=== PATIENT | male | born 1970 | race Hispanic/Latino ===

== ENCOUNTER 2017-03-14 08:29 | Inpatient (IN) | payer MEDICAID ==
[2017-03-14 08:37] VITALS: BMI 25.5
[2017-03-14 09:15] LABS: BASO % 0.5 % (0.0-2.0); EOS # 0.1 K/uL (0.0-0.7); HEMATOCRIT 44.7 % (35.0-51.0); LYMPH # 1.6 K/uL (1.0-4.3); LYMPH % 24.1 % (20.0-40.0); MEAN CELL VOLUME 89.5 fL (80.0-94.0); MEAN CORPUSCULAR HEMOGLOBIN 30.5 pg (27.0-31.0); MEAN CORPUSCULAR HGB CONC 34.1 g/dL (33.0-37.0); MEAN PLATELET VOLUME 7.8 fL (7.2-11.7); MONO # 0.6 K/uL (0.0-0.8); MONO % 8.9 % (0.0-10.0); RED CELL DISTRIBUTION WIDTH 13.7 % (11.5-14.5); WHITE BLOOD COUNT 6.6 K/uL (4.8-10.8)
[2017-03-14 09:22] LABS: CHLORIDE 98 mmol/L (98-107); POTASSIUM 3.7 mmol/L (3.6-5.2); SODIUM 141 mmol/L (132-148)
[2017-03-14 09:24] LABS: AST/SGOT 132 U/L (17-59); BILIRUBIN,TOTAL 0.7 mg/dL (0.2-1.3); CARBON DIOXIDE 27 mmol/L (22-30); GFR AFRICAN-AMERICAN > 60
[2017-03-14] MEDS ORDERED: Tmp-Smz 800 mg-160 mg DS Tab PO STA (09:24)
[2017-03-14 09:25] LABS: ALB/GLOB RATIO 1.4 (1.0-2.1); ALKALINE PHOSPHATASE 85 U/L (38-126); ALT/SGPT 69 U/L (21-72); BLOOD UREA NITROGEN 14 mg/dL (9-20); CALCIUM 8.8 mg/dl (8.6-10.4); GLUCOSE,RANDOM 128 mg/dL (75-110); TOTAL PROTEIN 7.5 g/dL (6.3-8.3)
[2017-03-14 09:26] LABS: ALCOHOL SERUM 100 mg/dl (0-10)
[2017-03-14] MEDS ORDERED: Tmp-Smz 800 mg-160 mg DS Tab ONE (10:06)
[2017-03-14 10:17] LABS: RBC URINE 2 /hpf (0-3); URINE BACTERIA OCC (<OCC); URINE BILIRUBIN NEGATIVE (NEGATIVE); URINE BLOOD NEGATIVE (NEGATIVE); URINE COLOR Yellow (YELLOW); URINE GLUCOSE (UA) NORMAL (Normal); URINE KETONE TRACE mg/dL (NEGATIVE); URINE LEUKOCYTE ESTERASE 1+ Leu/uL (Negative); URINE PROTEIN NEGATIVE (NEGATIVE); URINE UROBILINOGEN NORMAL mg/dL (0.2-1.0); WBC URINE 32 /hpf (0-5)
--- NOTE | 2017-03-14 10:37 | C.PDOC ---
History Of Present Illness Patient presents to ED c/o feeling depressed and having suicidal thoughts without specific plan. Patient also c/o right foot pain and swelling, has had previous infected wound/abscess in the area. He states he developed a wound there approx 4-5 days ago from his shoe rubbing the area, and it has become swollen and painful. He denies other physical complaints. Time Seen by Provider: 03/14/17 08:40 Chief Complaint (Nursing): Psychiatric Evaluation History Per: Patient History/Exam Limitations: no limitations Onset/Duration Of Symptoms: Persistent Current Symptoms Are (Timing): Still Present Modifying Factor(s): Alcohol Severity: Moderate Past Medical History Reviewed: Historical Data, Nursing Documentation, Vital Signs Vital Signs: Last Vital Signs Temp 97.1 F L 03/17/17 07:30 Pulse 76 03/17/17 07:30 Resp 16 03/17/17 07:30 BP 122/77 03/17/17 07:30 Pulse Ox 100 03/14/17 17:14 - Medical History PMH: Back Problems (pinched nerve), Depression - [facility] Procedures INDIVID PSYCHOTHERAP NEC (01/03/13) OTHER GROUP THERAPY (01/03/13) TETANUS TOXOID ADMINIST (08/11/14) VACCINATION NEC (08/11/14) Family History: States: No Known Family Hx - Social History Hx Tobacco Use: Yes Hx Alcohol Use: Yes Hx Substance Use: Yes (snorts cocaine) - Immunization History Hx Tetanus Toxoid Vaccination: No Hx Influenza Vaccination: Yes Hx Pneumococcal Vaccination: No Review Of Systems Except As Marked, All Systems Reviewed And Found Negative. Constitutional: Negative for: Fever, Chills Cardiovascular: Negative for: Chest Pain Respiratory: Negative for: Shortness of Breath Gastrointestinal: Negative for: Nausea, Vomiting, Abdominal Pain, Diarrhea Musculoskeletal: Positive for: Other (right foot pain/swelling ) Psych: Positive for: Depression, Suicidal ideation Physical Exam - Physical Exam Appears: Well, Non-toxic, No Acute Distress, Other (flat affect) Skin: Other (see extremity exam) Head: Normacephalic Eye(s): bilateral: Normal Inspection Oral Mucosa: Moist Cardiovascular: Rhythm Regular Respiratory: Normal Breath Sounds, No Rales, No Rhonchi, No Wheezing Gastrointestinal/Abdominal: Normal Exam, Bowel Sounds, Soft, No Tenderness Extremity: No Calf Tenderness, Capillary Refill (< 2 sec all digits ), Other ( right foot, between first and second digits (+) for pustule with mild surrounding erythema) Pulses: Left Dorsalis Pedis: Normal, Right Dorsalis Pedis: Normal Neurological/Psych: Oriented x3 ED Course And Treatment - Laboratory Results Result Diagrams: 03/14/17 09:10 03/14/17 09:10 O2 Sat by Pulse Oximetry: 99 (RA) Pulse Ox Interpretation: Normal Progress Note: Blood work, UA, UDS ordered and reviewed. Patient given PO Bactrim and Keflex for infected foot wound. 10:40am- Patient medically cleared. Pending crisis. Recommend PO Bactrim DS and PO Keflex 500mg BID x 7 days. Disposition - Disposition Disposition: HOSPITALIZED Disposition Time: 11:18 Condition: STABLE - Clinical Impression Clinical Impression: Depression, Cellulitis of foot Decision To Admit - Pt Status Changed To: Hospital Disposition Of: Inpatient - Admit Certification Admit to Inpatient:: After my assessment, the patient will require hospitalization for at least two midnights. This is because of the severity of symptoms shown, intensity of services needed, and/or the medical risk in this patient being treated as an outpatient. - InPatient: Physician Admission Certification: I certify that this patient requires 2 or more midnights of care for the following reason:: see notes - . Bed Request Type: Psychiatry Admitting Physician: Fritz Caba Patient Diagnosis: Depression, Cellulitis of foot
--- NOTE | 2017-03-14 12:23 | PCM.BM ---
<Iza Vásquez - Last Filed: 03/14/17 12:20> Treatment Plan Problems - Problems identified on initial assessmt Depression Date Initiated: 03/14/17 Time Initiated: 12:00 Assessment reference: NA Status: Active Substance Abuse Date Initiated: 03/14/17 Time Initiated: 12:00 Assessment reference: NA Status: Active Treatment assets and liabiliti Patient Assests: adapts well, cooperative, ADL independent, physically healthy, negotiates basic needs Patient Liabilities: live alone (Homeless, lives in Nursing Home), financial problems , poor support system, substance abuse (Cocaine, ETOH. BAL 100) - Milieu Protocol Maintain good personal hygiene: daily Encourage regular showers, daily Remind patient to perform daily oral care, other Assist patient to perform ADL's (Self) Conduct patient checks and document Observation sheet: Q15 minutes (Safety) Maintain personal safety: every shift Educate patient to report safety concerns to staff, every shift Monitor environment for contraband/sharps Medication safety: Monitor for expected outcome, potential side effects: every shift, Assess barriers to learning: every shift, Assess readiness for medication education: every shift <Linnea Mora - Last Filed: 03/17/17 10:41> Family Contact Family involvement: Famliy/SO not involved - Goals for Treatment Patient goals for treatment: "I want to go back to my rehab in [place]." Discharge/Continuing Care - Education Needs Education Needs: Patient Medication, Patient Coping Skills, Patient Placement options, Patient Community resources - Discharge Discharge Criteria: Tolerates medication w/o severe side effects, No longer exhibiting s/s of withdrawal, Reduction of target symptoms Discharge to:: Substance Abuse Rehab - Treatment Team Participation Discussed with Family/SO: No Was Patient/Family/SO present at Treatment Team Meeting: Yes <Fritz Caba - Last Filed: 03/17/17 17:26> - Diagnosis (1) Major depressive disorder, recurrent Status: Acute Interventions: 03/17/17 17:21 Assess/adjust medications daily and/or as needed See patient on an individual basis 7x/week to assess status of psychiatric symptoms/depression Discussed risks, benefits, side effects and alternatives of medications. (2) Alcohol use disorder, severe, dependence Status: Acute Interventions: 03/17/17 17:24 Assess 7x/week regarding severity of withdrawal Educate regarding risks, benefits, side effects and alternatives of medications Used motivational interviewing for abstinence Use CBT for relapse prevention Medication management for withdrawal symptoms Encourage medication assisted treatment
--- NOTE | 2017-03-15 16:51 | PCM.PSYCH ---
Initial Psychiatric Evaluation - Initial Psychiatric Evaluation Type of Admission: Voluntary Legal Status: Capacity Chief Complaint (in patient's own words): I'm feeling depressed History of Present Illness and Precipitating Events: Patient is a 47 year old homeless male with psychiatric history of depression, alcohol and cocaine and PMH of DM was presents to ED c/o feeling depressed and having suicidal thoughts without specific plan. Patient stated that he is feeling depressed for last 1 month, with low level of energy, difficulty in sleep, and difficulty in focusing. He stated that he passive suicidal ideation, but no intent or plan. He stated he contracted to hospital for safety. He denied HI, intent or plan. Pt's current stressor are loss of his intermediate, ID, wallet etc. He denied manic symptoms, He denied anxiety symptoms. He denied perceptual disturbances. He denied PTSD symptoms. He denied sexual or physical abuse. Per chart review he c/o right foot pain and swelling, has had previous infected wound/abscess in the past. however, he denied any pain or other symptoms He states he developed a wound there approx 4-5 days ago, and the area has become swollen and painful. He denies other physical complaints. Current Medications: Active Medications Generic Name Dose Route Start Last Admin Trade Name Freq PRN Reason Stop Dose Admin Ciprofloxacin 500 mg 03/14/17 18:00 03/15/17 09:16 Cipro PO 03/19/17 10:00 500 mg BID LEW Administration Folic Acid 1 mg 03/14/17 13:15 03/15/17 09:15 Folic Acid PO 1 mg DAILY LEW Administration Gabapentin 400 mg 03/14/17 14:00 03/15/17 13:32 Neurontin PO 400 mg TID LEW Administration Ibuprofen 400 mg 03/14/17 13:07 Motrin Tab PO Q6 PRN Pain, moderate (4-7) Influenza Virus Vaccine 45 mcg 03/17/17 10:00 Afluria IM 03/17/17 10:01 .ONCE ONE Lorazepam 2 mg 03/14/17 13:15 03/15/17 12:34 Ativan PO 03/19/17 13:14 Not Given Q4 LEW Taper Pneumococcal Polyvalent Vaccine 0.5 ml 03/17/17 10:00 Pneumovax 23 Vaccine IM 03/17/17 10:01 .ONCE ONE Thiamine HCl 100 mg 03/14/17 13:15 09/30/17 09:15 Vitamin B1 Tab PO 100 mg DAILY LEW Administration Trazodone HCl 50 mg 03/14/17 13:03 03/14/17 21:15 Desyrel PO 50 mg HS PRN Administration Insomnia Past Psychiatric History - Past Psychiatric History Previous Treatment History: Inpatient Prior Psychiatric Treatment: He was admitted to [facility] in 2014 History of Abuse: denied History of ETOH/Drug Use: Pt was not able to give his complete history History of Family Illness: denied Pertinent Medical Hx (Current Medical&Sleep Prob, Allergies): Per chart review he c/o right foot pain and swelling, has had previous infected wound/abscess in the past. however, currently he denied any pain or other symptoms He states he developed a wound there approx 4-5 days ago, and the area has become swollen and painful. He denies other physical complaints. Allergies Allergy/AdvReac Type Severity Reaction Status Date / Time shellfish derived Allergy Verified 03/14/17 08:33 No Known Home Med 03/14/17 Review of Systems - Review of Systems Systems not reviewed;Unavailable: Acuity of Condition Review of Systems: Please see HPI Mental Status Examination - Personal Presentation Personal Presentation: Looks stated age - Affect Affect: Constricted - Motor Activity Motor Activity: Calm - Reliability in Providing Information Reliability in Providing Information: Fair - Speech Speech: Organized - Mood Mood: Depressed - Formal Thought Process Formal Thought Process: No Impairment - Hallucinations/Delusions Hallucinations: Other (denied) Delusions: Other (denied) - Obsessions/Compulsions Obsessions: No Compulsions: No - Cognitive Functions Orientation: Person, Place, Situation, Time Sensorium: Alert Attention/Concentration: Attentive Abstract Thinking: [place] Estimate of Intelligence: Average Judgement: Intact, as evidence by: Good judgement, Intact, as evidence by: Insight regarding need for hospitalization Memory: Recent intact, as evidence by: Ability to recall events of the day - Risk Risk: Other (currently denied SI, HI, intent or plan. No access to guns) - Strength & Assets Inventory Strength & Assets Inventory: Interests/hobbies, Spiritual affiliations, Cooperative, Other (wants to live healthy and contracted hospital for safety) - Limitations Limitations: Living alone DSM 5 DX - DSM 5 DSM 5 Diagnosis: Major Depressive d/o Alcohol use disorder, Intoxicated - Recommended/Plan of Treatment Treatment Recommendations and Plan of Treatment: Ativan taper for alcohol detox. Start Zoloft 25 mg po daily for depression, will titrate according to his response Individual and group therapy. Therapy in milieu CBT targets: psychoeducation, coping skills, relaxation techniques, automatic thoughts, recent financial struggles and move Monitor symptoms. Labs result reviewed Cipro for UTI Pt needs stabilization on meds Time spend 30 minutes Projected ELOS: 5-7 days Prognosis: fair with meds Discharge Plan and Discharge Criteria: Pt will be discharged after stabilization on meds
--- NOTE | 2017-03-16 17:06 | PCM.PYCHPN ---
Psychiatric Progress Note - Psychiatric Progress Note Patient seen today, length of contact: 15 minutes Patient Chief Complaint: I'm feeling better than yesterday Problems Identified/Issues Discussed: Patient was seen. Chart was reviewed important content noted. Nurse input received that his alcohol withdrawal symptoms are getting better. Patient stated that he is feeling better than yesterday. He has no new complaints. No events overnight. Patient slept well and is eating well. Patient denies any depressive symptoms. Denies suicidal or homicidal ideations. Patient does not report hallucinations. No delusions elicited. No paranoia elicited. Patient has remained in good clinical and behavioral control. Patient is finding medications beneficial and would like to continue with treatment plan. Patient appreciated that treatment team is trying to help. DSM 5 Symptoms Update: MDD, Recurrent, mild Alcohol use d/o, Intoxication without complication Medication Change: Yes (Decrease Ativan dosage (ativan taper for alcohol withdrawal)) Medical Record Reviewed: Yes Mental Status Examination - Cognitive Function Orientation: Person, Place, Situation, Time Memory: Intact Attention: WNL Concentration: WNL Association: WNL Fund of Knowledge: WNL - Mood Mood: Other (Pt stated that he is feeling better than yesterday) - Affect Affect: Constricted - Speech Speech: Soft - Formal Thought Process Formal Thought Process: No Impairment Psychotic Thoughts and Behaviors: denied - Suicidal Ideation Suicidal Ideation: No - Homicidal Ideation Homicidal Ideation: No Goal/Treatment Plan - Goal/Treatment Plan Need for Continued Stay: Discharge may exacerbated symptoms Progress Toward Problem(s) and Goals/Treatment Plan: Ativan taper for alcohol detox. Decrease Ativan dose Continue Zoloft 25 mg po daily for depression, will titrate according to his response Individual and group therapy. Therapy in milieu CBT targets: psychoeducation, coping skills, relaxation techniques, automatic thoughts, recent financial struggles and move Monitor symptoms. Cipro for UTI Pt needs stabilization on meds Time spend 15 minutes Estimated Date of D/C: 03/20/17 - Smoking Cessation Smoking Cessation Initiated: Yes
[2017-03-17 07:46] VITALS: O2SAT 99
[2017-03-17] MEDS ORDERED: Pneumococcal 23-Valent Vaccine IM ONE (10:00)
[2017-03-17] MEDS ORDERED: Influenza Virus Vaccine (Afluria Inactive dont use ) IM ONE (10:00)
[2017-03-17] MEDS ORDERED: Influenza Vaccine 60 mcg/0.5 mL SYR (4YR UP) IM ONE (11:11)
--- NOTE | 2017-03-17 17:29 | PCM.PYCHPN ---
Psychiatric Progress Note - Psychiatric Progress Note Patient seen today, length of contact: 15 minutes Patient Chief Complaint: I'm feeling much better with the treatment Problems Identified/Issues Discussed: Patient seen. Chart reviewed. Case discussed with the staff. Issues related to illness and treatment were discussed with the patient. Reported compliant with treatment with no adverse affects. Tolerating treatment very well. Reported feeling much better with only mild withdrawal symptoms. Wants to go to a rehabilitation in [facility]. At the time of evaluation, patient was awake alert oriented 3, had no delusions , no auditory or visual hallucinations, no suicidal ideations or homicidal ideations. Medical Problems: None reported Diagnostic Results: Reviewed DSM 5 Symptoms Update: Improving with treatment Medication Change: No Medical Record Reviewed: Yes Mental Status Examination - Cognitive Function Orientation: Person, Place, Situation, Time Memory: Intact Attention: WNL Concentration: WNL Association: WN Fund of Knowledge: [facility] Decription of patient's judgement and insights: Fair - Mood Mood: Depressed (Much less than before) - Affect Affect: Depressed - Speech Speech: Soft - Formal Thought Process Formal Thought Process: No Impairment Psychotic Thoughts and Behaviors: None - Suicidal Ideation Suicidal Ideation: No - Homicidal Ideation Homicidal Ideation: No Goal/Treatment Plan - Goal/Treatment Plan Need for Continued Stay: Remain at risks for inpatient hospitalization, Discharge may exacerbated symptoms, Severe functional impairment Progress Toward Problem(s) and Goals/Treatment Plan: Patient education Supportive therapy Patient needs more time for stabilization has patient still has withdrawal symptoms and depression but less than before Continue treatment as before. Estimated Date of D/C: 03/21/17 - Smoking Cessation Smoking Cessation Initiated: Yes
--- NOTE | 2017-03-18 18:25 | PCM.PYCHPN ---
Psychiatric Progress Note - Psychiatric Progress Note Patient seen today, length of contact: 15 minutes Patient Chief Complaint: I'm feeling much better with the treatment Problems Identified/Issues Discussed: Patient seen. Chart reviewed. Case discussed with the staff. Issues related to illness and treatment were discussed with the patient. Reported compliant with treatment with no adverse affects. Tolerating treatment very well. Reported feeling much better with only mild withdrawal symptoms. Wants to go to a rehabilitation in [facility]. At the time of evaluation, patient was awake alert oriented 3, had no delusions , no auditory or visual hallucinations, no suicidal ideations or homicidal ideations. Medical Problems: None reported Diagnostic Results: Reviewed DSM 5 Symptoms Update: Improving with treatment Medication Change: No Medical Record Reviewed: Yes Mental Status Examination - Cognitive Function Orientation: Person, Place, Situation, Time Memory: Intact Attention: WNL Concentration: WNL Association: WN Fund of Knowledge: [facility] Decription of patient's judgement and insights: Fair - Mood Mood: Depressed (Much less than before) - Affect Affect: Other (Appropriate) - Speech Speech: Appropriate - Formal Thought Process Formal Thought Process: No Impairment Psychotic Thoughts and Behaviors: None - Suicidal Ideation Suicidal Ideation: No - Homicidal Ideation Homicidal Ideation: No Goal/Treatment Plan - Goal/Treatment Plan Need for Continued Stay: Remain at risks for inpatient hospitalization, Discharge may exacerbated symptoms, Severe functional impairment Progress Toward Problem(s) and Goals/Treatment Plan: Patient education Supportive therapy Patient needs more time for stabilization as patient still has some withdrawal symptoms and depression but less than before Continue treatment as before. Estimated Date of D/C: 03/21/17 - Smoking Cessation Smoking Cessation Initiated: Yes
[2017-03-19 11:37] VITALS: RESP 20
--- NOTE | 2017-03-19 15:33 | PCM.PYCHPN ---
Psychiatric Progress Note - Psychiatric Progress Note Patient seen today, length of contact: 15 minutes Patient Chief Complaint: I'm feeling much better with the treatment Problems Identified/Issues Discussed: Patient seen. Chart reviewed. Case discussed with the staff. Issues related to illness and treatment were discussed with the patient. Reported compliant with treatment with no adverse affects. Tolerating treatment very well. Reported feeling much better. Wants to go to a rehabilitation in [facility]. At the time of evaluation, patient was awake alert oriented 3, had no delusions , no auditory or visual hallucinations, no suicidal ideations or homicidal ideations. Medical Problems: None reported Diagnostic Results: Reviewed DSM 5 Symptoms Update: Improving with treatment Medication Change: No Medical Record Reviewed: Yes Mental Status Examination - Cognitive Function Orientation: Person, Place, Situation, Time Memory: Intact Attention: WNL Concentration: WNL Association: WN Fund of Knowledge: [facility] Decription of patient's judgement and insights: Fair - Mood Mood: Depressed (Much less than before) - Affect Affect: Other (Appropriate) - Speech Speech: Appropriate - Formal Thought Process Formal Thought Process: No Impairment Psychotic Thoughts and Behaviors: None - Suicidal Ideation Suicidal Ideation: No - Homicidal Ideation Homicidal Ideation: No Goal/Treatment Plan - Goal/Treatment Plan Need for Continued Stay: Remain at risks for inpatient hospitalization, Discharge may exacerbated symptoms, Severe functional impairment Progress Toward Problem(s) and Goals/Treatment Plan: Patient education Supportive therapy Continue treatment as before. Estimated Date of D/C: 03/21/17 - Smoking Cessation Smoking Cessation Initiated: Yes
[2017-03-20 09:36] VITALS: BP 124/78; PULSE 80; TEMP 98.2
--- NOTE | 2017-03-20 14:50 | PCM.PYCHDC ---
Mental Status Examination - Mental Status Examination Orientation: Person, Place, Situation, Time Memory: Intact Mood: Neutral Affect: Other (Appropriate) Speech: Appropriate Attention: WNL Concentration: WNL Association: WNL Fund of Knowledge: WNL Formal Thought Process: No Impairment Description of patient's judgement and insight: Fair Psychotic Thoughts and Behaviors: None Suicidal Ideation: No Current Homicidal Ideation?: No Discharge Summary - Discharge Note Reason for Hospitalization: Major depressive disorder Alcohol use disorder severe Alcohol withdrawal Laboratory Data: Reviewed Consultations:: List each consultation separately and include: 1. Reason for request. 2. Findings. 3. Follow-up Summary of Hospital Course include:: 1. Description of specific treatment plan utilized for patients during their course of treatmen. 2. Summarize the time- course for resolution of acute symptoms and/or regressed behaviors. 3. Describe issues identified and worked on during hospitalization. 4. Describe medication utilized. 5. Describe medical problems identified and treated. 6. Reassessment of suicide risk Summary of Hospital Course: Patient is a 47 year old homeless male with psychiatric history of depression, alcohol and cocaine and PMH of DM was presents to ED c/o feeling depressed and having suicidal thoughts without specific plan. Patient stated that he is feeling depressed for last 1 month, with low level of energy, difficulty in sleep, and difficulty in focusing. He stated that he passive suicidal ideation, but no intent or plan. He stated he contracted to hospital for safety. He denied HI, intent or plan. Pt's current stressor are loss of his [facility], ID, wallet etc. He denied manic symptoms, He denied anxiety symptoms. He denied perceptual disturbances. He denied PTSD symptoms. He denied sexual or physical abuse. Per chart review he c/o right foot pain and swelling, has had previous infected wound/abscess in the past. however, he denied any pain or other symptoms He states he developed a wound there approx 4-5 days ago, and the area has become swollen and painful. He denies other physical complaints. During his stay in the unit,Patient was treated with Ativan detox protocol, other when necessary medications, sertraline, gabapentin, thiamine, folic acid and multivitamins. Patient was attending groups and participated in other activities on the unit. With the above treatment patient started feeling better. No withdrawal symptoms. Better mood. Today patient was stable and ready for discharge. At the time of evaluation, patient was awake alert oriented 3, no delusions, no auditory visual hallucinations, no suicidal ideations or homicidal ideations. She was discharged in a stable condition. - Diagnosis (1) Major depressive disorder, recurrent Status: Acute (2) Alcohol use disorder, severe, dependence Status: Acute - Final Diagnosis (DSM 5) Condition upon Discharge: STABLE Disposition: HOME/ ROUTINE Prescriptions/Medication Reconciliation: Gabapentin [Neurontin] 400 mg PO TID #90 cap Sertraline [Zoloft] 50 mg PO DAILY #30 tab traZODone [Desyrel] 50 mg PO HS PRN #30 tab PRN Reason: Insomnia - Smoking Cessation Smoking Cessation Medication prescribed: No - Antipsychotic Medications Pt discharged on 2 or more routine antipsychotic medications: No
== END 2017-03-20 11:38 | disposition home or self-care (01) | DRG 430 ==
LOC: C.ER 08:29 → C.5E 11:18
PROC: HZ2ZZZZ Detoxification Services for Substance Abuse Treatment (ICD-10-PCS; principal; 2017-03-14)
PROC: HZ52ZZZ Individual Psychotherapy for Substance Abuse Treatment, Cognitive-Behavioral (ICD-10-PCS; 2017-03-14)
PROC: HZ59ZZZ Individual Psychotherapy for Substance Abuse Treatment, Supportive (ICD-10-PCS; 2017-03-14)
PROC: HZ56ZZZ Individual Psychotherapy for Substance Abuse Treatment, Psychoeducation (ICD-10-PCS; 2017-03-14)
DX: F33.0 Major depressive disorder, recurrent, mild (principal); R45.851 Suicidal ideations; N39.0 Urinary tract infection, site not specified; F10.239 Alcohol dependence with withdrawal, unspecified; Z59.0 Homelessness; Z79.899 Other long term (current) drug therapy; Z87.891 Personal history of nicotine dependence